=== PATIENT | female | born 1945 | race Caucasian/White ===

== ENCOUNTER 2017-10-23 21:33 | Emergency (ER) | payer MEDICARE ==
[2017-10-23] MEDS ORDERED: CYCLOBENZAPRINE 10MG TABLET PO ONE (22:03)
[2017-10-23] MEDS ORDERED: HYDROCODONE/APAP 5/325MG TABLET PO ONE (22:03)
[2017-10-23] MEDS ORDERED: KETOROLAC 30 MG/ML VIAL IM ONE (22:04)
--- NOTE | 2017-10-23 23:37 | Emergency Department Record ---
History of Present Illness - General Chief Complaint: Neck Injury/Pain Stated Complaint: PAIN IN HER NECK Time Seen by Provider: 10/23/17 21:50 Source: Patient Mode of Arrival: Ambulatory Limitations: No limitations - History of Present Illness Initial Comments: pt has neck pain that started with a roadtrip this wk. she has chronic neck pain but this is worse then usual. she does not recall an injury. she did have pain radiating down her r arm but thar has eased. the jeet is mainly in the back of the neck in the musculature and worsens w movement MD Complaint: Neck pain Onset/Timin -: Days(s) Place: Home Radiation: Right upper extremity Severity: Severe Severity scale (1-10): 9 Consistency: Constant Improves With: Cold therapy, Immobilization, Remaining still Worsens With: Movement of neck Associated Symptoms: None Treatments Prior to Arrival: Acetaminophen - Related Data Previous Rx's Medication Instructions Recorded Cyclobenzaprine HCl [Flexeril] 5 mg PO TID #10 tab 10/23/17 Hydrocodone/APAP 5/325Mg [[place] 0.5 each PO Q6H #7 tab 10/23/17 5Mg/325Mg] Ibuprofen [Motrin 400Mg] 400 mg PO Q6H PRN #20 tablet 10/23/17 Allergies Allergy/AdvReac Type Severity Reaction Status Date / Time Penicillins Allergy PT UNSURE Verified 10/23/17 21:40 OF REACTION Sulfa (Sulfonamide Allergy PT UNSURE Verified 10/23/17 21:40 Antibiotics) OF REACTION Travel Screening - Travel/Exposure Within Last 30 Days Have you traveled within the last 30 days?: No - Travel/Exposure Within Last Year Have you traveled outside the [place] in the last year?: No - Additonal Travel Details Have you been exposed to anyone with a communicable illness?: No - Travel Symptoms Symptom Screening: None Review of Systems Reviewed: No additional complaints except as noted below Constitutional: Reports: As per HPI. Denies: Chills, Fever, Malaise, Night sweats, Weakness, Weight change Eyes: Reports: As per HPI. Denies: Eye discharge, Eye pain, Photophobia, Vision change ENT: Reports: As per HPI. Denies: Congestion, Dental pain, Ear pain, Epistaxis , Hearing loss, Throat pain Respiratory: Reports: As per HPI. Denies: Cough, Dyspnea, Hemoptysis, Stridor, Wheezes Cardiovascular: Reports: As per HPI. Denies: Arrhythmia, Chest pain, Dyspnea on exertion, Edema, Murmurs, Orthopnea, Palpitations, Paroxysmal nocturnal dyspnea, Rheumatic Fever, Syncope Endocrine: Reports: As per HPI. Denies: Fatigue, Heat or cold intolerance, Polydipsia, Polyuria Gastrointestinal: Reports: As per HPI. Denies: Abdominal pain, Constipation, Diarrhea, Hematemesis, Hematochezia, Melena, Nausea, Vomiting Genitourinary: Reports: As per HPI. Denies: Abnormal menses, Discharge, Dyspareunia, Dysuria, Frequency, Hematuria, Incontinence, Retention, Urgency Musculoskeletal: Reports: As per HPI, Neck pain. Denies: Arthralgia, Back pain , Gout, Joint swelling, Myalgia Skin: Reports: As per HPI. Denies: Bruising, Change in color, Change in hair/ nails, Lesions, Pruritus, Rash Neurological: Reports: As per HPI. Denies: Abnormal gait, Confusion, Headache, Numbness, Paresthesias, Seizure, Tingling, Tremors, Vertigo, Weakness Psychiatric: Reports: As per HPI. Denies: Anxiety, Auditory hallucinations, Depression, Homicidal thoughts, Suicidal thoughts, Visual hallucinations Hematological/Lymphatic: Reports: As per HPI. Denies: Anemia, Blood Clots, Easy bleeding, Easy bruising, Swollen glands Past Medical History - SOCIAL HISTORY Smoking Status: Never smoker Alcohol Use: None Drug Use: None - RESPIRATORY Hx Respiratory Disorders: Yes - CARDIOVASCULAR Hx Cardio Disorders: Yes Hx Chest Pain: Yes (stress test negative) Comment:: works in garden and does chores around house - NEURO Hx Neuro Disorders: Yes Hx Headaches: Yes - GI Hx GI Disorders: Yes Hx Abdominal Pain: No Hx Reflux: Yes Hx Nausea/Vomiting: Yes Hx of Polyps: Yes - Hx Genitourinary Disorders: Yes Hx Bladder Problem: Yes Comment:: goes frequently at [facility] - ENDOCRINE Hx Endocrine Disorders: Yes Hx Thyroid Disease: Yes (Hypothyroid) - MUSCULOSKELETAL Hx Musculoskeletal Disorders: Yes Hx Arthritis: Yes Hx Osteoporosis: Yes Comment:: osteopenia - PSYCH Hx Psych Problems: Yes Hx Anxiety: Yes Hx Depression: Yes - HEMATOLOGY/ONCOLOGY Hx Hematology/Oncology Disorders: No Family Medical History Any Significant Family History?: No Hx Cancer: Father *Cancer Comment: lung Hx Diabetes: Brother/Sister, Grandparents Hx Heart Disease: Mother *Heart Comment: CHF Physical Exam - General General Appearance: Alert, Oriented x3, Cooperative, Mild distress - Head Head exam: Normal inspection - Eye Eye exam: Normal appearance, PERRL, EOMI Pupils: Normal accommodation - ENT ENT exam: Normal exam, Mucous membranes moist, Normal external ear exam, Normal orophraynx Ear exam: Normal external inspection. negative: External canal tenderness Nasal Exam: Normal inspection. negative: Discharge, Sinus tenderness Mouth exam: Normal external inspection, Tongue normal Teeth exam: Normal inspection. negative: Dental caries Throat exam: Normal inspection. negative: Tonsillar erythema, Tonsillar exudate - Neck Neck exam: Tenderness, Other (no tenderness center spine. pos tendernesss in musculature bilaterally) - Respiratory Respiratory exam: Normal lung sounds bilaterally. negative: Respiratory distress - Cardiovascular Cardiovascular Exam: Regular rate, Normal rhythm, Normal heart sounds - GI/Abdominal GI/Abdominal exam: Soft, Normal bowel sounds. negative: Tenderness - Rectal Rectal exam: Deferred - exam: Deferred - Extremities Extremities exam: Normal inspection, Full ROM, Normal capillary refill. negative: Tenderness - Back Back exam: Reports: Normal inspection, Full ROM. Denies: Muscle spasm, Rash noted, Tenderness - Neurological Neurological exam: Alert, CN II-XII intact, Normal gait, Oriented X3 - Psychiatric Psychiatric exam: Normal affect, Normal mood - Skin Skin exam: Dry, Intact, Normal color, Warm Course Vital Signs 10/23/17 21:37 Temperature 98.5 F Pulse Rate [ 66 Pulse Ox Probe] Respiratory 24 Rate Blood Pressure 122/71 [Left Arm] Pulse Ox 100 Disposition Disposition: Discharge Clinical Impression: Torticollis, Cervical radiculopathy Disposition: Home, Self-Care Condition: (1) Good Instructions: Cervical Sprain (ED), Spasmodic Torticollis (ED), Cervical Radiculopathy (ED) Additional Instructions: follow up with family doctor. return sooner if worse. moist heat. Prescriptions: Cyclobenzaprine HCl [Flexeril] 5 mg PO TID #10 tab Hydrocodone/APAP 5/325Mg [[place] 5Mg/325Mg] 0.5 each PO Q6H #7 tab Ibuprofen [Motrin 400Mg] 400 mg PO Q6H PRN #20 tablet PRN Reason: Pain - Moderate (5-7) Quality - Quality Measures Quality Measures: N/A - Blood Pressure Screening Does Patient Have Any of the Following: No Blood Pressure Classification: Pre-Hypertensive BP Reading Systolic Measurement: 122 Diastolic Measurement: 71 Screening for High Blood Pressure: < Pre-Hypertensive BP, F/U Documented > [ G8950] Pre-Hypertensive Follow-up Interventions: Follow-up with rescreen every year.
--- NOTE | 2017-10-25 23:06 | RADIOLOGY REPORT ---
EXAM: CERVICAL SPINE AP & LATERAL HISTORY: NECK PAIN. TECHNIQUE: Four views of the cervical spine. COMPARISON: None. FINDINGS: Osteopenia. Vertebral body height and alignment is preserved. The atlantoaxial space is preserved. Lateral masses are not displaced. Prevertebral soft tissues are normal. Multilevel degenerative change throughout the cervical spine, with multilevel facet arthropathy, disc space narrowing, and osteophytic spurring. IMPRESSION: OSTEOPENIA WITH DIFFUSE DEGENERATIVE CHANGE. J[facility] NUMBER: [id number] [facility]
== END 2017-10-23 23:54 | disposition home or self-care (01) ==
LOC: ER 21:33
DX: M43.6 Torticollis (principal); M54.12 Radiculopathy, cervical region
CPT/HCPCS: 99283 ×2; 72040; J1885

== ENCOUNTER 2017-11-23 12:13 | Emergency (ER) | payer MEDICARE ==
--- NOTE | 2017-11-23 12:35 | Emergency Department Record ---
History of Present Illness - General Chief Complaint: Laceration(s) Stated Complaint: LACERATION,SYNCOPE Time Seen by Provider: 11/23/17 12:29 Source: Patient Mode of Arrival: Wheelchair Limitations: No limitations - History of Present Illness Initial Commments: 72 yo female presents with left and right hand injuries. 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 She accidentally hit both her left and her right hands at separate times trying to push in the tabs. She has pain and some tingling in her right thumb. She is looking into her last tetanus shot. She has no pain in the left hand. She is right handed. Onset/Timin -: Hour(s) Location: Other Extremity Location: Left: Hand, Right: Hand Place: Other Context: Accidental Associated Symptoms: Loss of feeling/numbness Treatments Prior to Arrival: Bandage - Kathie Coma Scale Eye Response: (4) Open spontaneously Motor Response: (6) Obeys commands Verbal Response: (5) Oriented Eure Total: 15 - Related Data Hx Tetanus Toxoid Vaccination: Yes Previous Rx's Medication Instructions Recorded Cephalexin [Keflex] 500 mg PO TID #21 cap 11/23/17 Hydrocodone/APAP 5/325Mg [[place] 1 each PO Q6H #10 tab 11/23/17 5Mg/325Mg] Allergies Allergy/AdvReac Type Severity Reaction Status Date / Time Penicillins Allergy PT UNSURE Verified 10/23/17 21:40 OF REACTION Sulfa (Sulfonamide Allergy PT UNSURE Verified 10/23/17 21:40 Antibiotics) OF REACTION Travel Screening - Travel/Exposure Within Last 30 Days Have you traveled within the last 30 days?: No Review of Systems Constitutional: Denies: Chills, Fever, Weakness Eyes: Denies: Eye discharge ENT: Denies: Congestion, Throat pain Respiratory: Denies: Cough Cardiovascular: Denies: Chest pain, Syncope Endocrine: Denies: Fatigue Gastrointestinal: Denies: Diarrhea, Nausea, Vomiting Genitourinary: Denies: Dysuria Musculoskeletal: Reports: Arthralgia, Myalgia Skin: Denies: Bruising, Change in color, Rash Neurological: Reports: Tingling. Denies: Numbness, Weakness Psychiatric: Denies: Anxiety Hematological/Lymphatic: Denies: Easy bleeding, Easy bruising Past Medical History - SOCIAL HISTORY Smoking Status: Never smoker Alcohol Use: None Drug Use: None - RESPIRATORY Hx Respiratory Disorders: Yes - CARDIOVASCULAR Hx Cardio Disorders: Yes Hx Chest Pain: Yes (stress test negative) Comment:: works in garden and does chores around house - NEURO Hx Neuro Disorders: Yes Hx Headaches: Yes - GI Hx GI Disorders: Yes Hx Abdominal Pain: No Hx Reflux: Yes Hx Nausea/Vomiting: Yes Hx of Polyps: Yes - Hx Genitourinary Disorders: Yes Hx Bladder Problem: Yes Comment:: goes frequently at [facility] - ENDOCRINE Hx Endocrine Disorders: Yes Hx Thyroid Disease: Yes (Hypothyroid) - MUSCULOSKELETAL Hx Musculoskeletal Disorders: Yes Hx Arthritis: Yes Hx Osteoporosis: Yes Comment:: osteopenia - PSYCH Hx Psych Problems: Yes Hx Anxiety: Yes Hx Depression: Yes - HEMATOLOGY/ONCOLOGY Hx Hematology/Oncology Disorders: No Family Medical History Any Significant Family History?: Yes Hx Cancer: Father *Cancer Comment: lung Hx Diabetes: Brother/Sister, Grandparents Hx Heart Disease: Mother *Heart Comment: CHF Physical Exam - General General Appearance: Alert, Oriented x3, Cooperative, No acute distress Limitations: No limitations - Head Head exam: Atraumatic - Eye Eye exam: Normal appearance - ENT ENT exam: Normal exam Ear exam: Normal external inspection Nasal Exam: Normal inspection Mouth exam: Normal external inspection - Neck Neck exam: Normal inspection, Full ROM. negative: Tenderness - Respiratory Respiratory exam: Normal lung sounds bilaterally. negative: Respiratory distress - Cardiovascular Cardiovascular Exam: Regular rate, Normal rhythm, Normal heart sounds - Rectal Rectal exam: Deferred - exam: Deferred - Extremities Extremities exam: Normal capillary refill. negative: Normal inspection Image of Hand: 1 - superficial puncture, no bleeding, clean 2 - puncture site, full ROM, subjective numbness ulnar side, clean Course Vital Signs 11/23/17 12:14 Temperature 97.5 F L Pulse Rate 63 Respiratory 18 Rate Blood Pressure 111/69 Pulse Ox 100 - Reevaluation(s) Reevaluation #1: 11/23/17 13:16 The XR was reviewed No fracture or FB Air in the soft tissues of the first and second finger consistent with puncture wound The wounds were thoroughly irrigated out and cleaned Given the risks of infection with puncture wounds I do not recommend suturing She will be placed on antibiotics, pain control and given a number for follow up with the numbness to the thumb 11/23/17 13:35 We again spoke at length about puncture wounds, chances of increased infection, home care and reasons to return to the ED She was placed in a non stick dressing and tetanus updated She was encourage to keep the use with the right hand to a minimum. 11/23/17 14:11 Disposition Disposition: Discharge Clinical Impression: Puncture wound, hand Disposition: Home, Self-Care Condition: (1) Good Instructions: Puncture Wound (ED) Additional Instructions: Return or be seen if pain, pus, red or swollen Call the number for the hand surgeon to evaluate the area with numbness Take the antibiotics as directed Prescriptions: Cephalexin [Keflex] 500 mg PO TID #21 cap Hydrocodone/APAP 5/325Mg [[place] 5Mg/325Mg] 1 each PO Q6H #10 tab Referrals: ERUM DOUGLAS M.D. [MEDICAL DOCTOR] - Forms: Patient Portal Access Time of Disposition: 13:22 Quality - Quality Measures Quality Measures: N/A - Blood Pressure Screening Does Patient Have Any of the Following: No Blood Pressure Classification: Normal BP Reading Systolic Measurement: 101 Diastolic Measurement: 71 Screening for High Blood Pressure: < Normal BP, F/U Not Required > [G8783]
[2017-11-23] MEDS ORDERED: CEPHALEXIN 500 MG CAPSULE PO STA (12:37)
[2017-11-23] MEDS ORDERED: Diph,Pert(Acell),Tet Vac 0.5 ML SYR IM ONE (12:37)
[2017-11-23] MEDS ORDERED: ACETAMINOPHEN 500 MG TABLET PO ONE (12:45)
--- NOTE | 2017-11-23 20:15 | RADIOLOGY REPORT ---
EXAM: HAND, RIGHT 3 VIEWS HISTORY: LACERATION. TECHNIQUE: Right hand, three views. FINDINGS: No evidence of acute fracture or dislocation. There is gas in the soft tissues of the first and second digits. This may relate to laceration. There is severe degenerative change of the first carpometacarpal joint space. IMPRESSION: 1. NO EVIDENCE OF FRACTURE OR DISLOCATION. 2. SEVERE DEGENERATIVE CHANGE OF THE FIRST CARPOMETACARPAL JOINT SPACE. 3. SOFT TISSUE GAS IN THE FIRST AND SECOND DIGIT. THIS MAY BE RELATED TO INJURY. CORRELATION WITH PATIENT'S CLINICAL SYMPTOMATOLOGY IS RECOMMENDED. JOB NUMBER: [id number] [facility]
== END 2017-11-23 13:54 | disposition home or self-care (01) ==
LOC: ER 12:13
DX: S61.412A Laceration without foreign body of left hand, initial encounter (principal); S61.411A Laceration without foreign body of right hand, initial encounter; W27.0XXA Contact with workbench tool, initial encounter
CPT/HCPCS: 90715; 96372; 99283